=== PATIENT | female | born 1995 | race Hispanic/Latino ===

== ENCOUNTER 2017-04-06 00:37 | Day surgery (SDC) | payer OTHER ==
[2017-04-06 01:10] VITALS: BP 136/78; TEMP 98.5; BMI 22.6
--- NOTE | 2017-04-06 06:24 | PRG ---
OB ER ENCOUNTER DATE OF SERVICE: 04/06/2017 PRIMARY OB: Dr. Bibiana Tolliver. CHIEF COMPLAINT: Abdominal pains. HISTORY OF PRESENT ILLNESS: The patient is a 21-year-old G1, P0 female with an intrauterine pregnan cy at 39 weeks today who presents to Labor and Delivery with increasing abdominal pains. She report s that began about 11:00 in the morning prior to presentation. She says they have intensified and b ecome more regular as the day has progressed. She denies any leakage of fluid, any significant vagi nal bleeding, any fever, headache, fall, chest pain, shortness of breath. The patient reports nause a. Denies vomiting. Denies any constipation or diarrhea, any new skin rashes. She denies any vagi nal bleeding or leakage of fluid, any change in discharge. She denies urinary urgency. She denies any hip problems or knee problems. Pain is primarily in her lower abdomen and her back when the con tractions come on. PAST MEDICAL HISTORY: Negative. PAST SURGICAL HISTORY: Negative. ALLERGIES: No known drug allergies. MEDICATIONS: vitamins. OB LABS: RPR is nonreactive, GC chlamydia not detected. Hepatitis B surface antigen is nonreactive . HIV is nonreactive. She is rubella immune. Blood type is O positive. REVIEW OF SYSTEMS: Per HPI. PHYSICAL EXAMINATION: VITAL SIGNS: Blood pressure is 136/78, heart rate is 73, temperature 98.5, respiratory rate 18. GENERAL: She appears to be in no acute distress. She is alert and oriented, and cooperative and pl easant to interact with. HEENT: Head is normocephalic, atraumatic. LUNGS: Clear to auscultation bilaterally. HEART: Regular rate and rhythm. ABDOMEN: Gravid, soft, and nontender. EXTREMITIES: Nontender, nonedematous. CERVICAL EXAM: Per nursing staff, she is 0% effaced and -3 station. heart tracing performed for threatened labor at term. Baseline was noted to be at the 120s wi th moderate long-term variability, positive accelerations, no decelerations. The strip was about 1- 1/2 hours long, contractions are about every 5 to 6 minutes. ASSESSMENT AND PLAN: The patient is a 21-year-old G1, P0 female with an intrauterine at 3 9 weeks who is having term contractions and possible latent labor, but no evidence of active labor a t this time. The patient has requested pain medication prior to discharge home. We will be giving her 2 mg of Stadol IM with instructions to go home and rest and return with contractions have furthe r intensified become closer together or if she has leaking fluid or heavy vaginal bleeding. Fetus h as a category 1 tracing.
== END 2017-04-06 02:45 | disposition home or self-care (01) ==
LOC: L&D/OP 00:37
PROVIDERS: ATTEND Family Medicine
DX: O47.1 False labor at or after 37 completed weeks of gestation (principal); Z3A.39 39 weeks gestation of pregnancy; Z79.899 Other long term (current) drug therapy
CPT/HCPCS: 96372; J0595

== ENCOUNTER 2017-04-06 07:20 | Inpatient (IN) | payer MEDICAID, OTHER, SELFPAY ==
[2017-04-06] MEDS ORDERED: Promethazine HCl 25 MG/ML VIAL IM PRN ×2 (07:45→08:50)
[2017-04-06] MEDS ORDERED: HYDROcodone/Acetaminophen 5/325 mg Tablet PO PRN ×3 (07:45→16:11)
[2017-04-06] MEDS ORDERED: Ondansetron HCl/PF 4 MG/2 ML Vial IVP PRN ×2 (07:45→08:50)
[2017-04-06] MEDS ORDERED: Lidocaine 1% (PF) 30 ML VIAL SC PRN (07:45)
[2017-04-06] MEDS ORDERED: Ibuprofen 800 MG TAB PO PRN (07:45)
[2017-04-06] MEDS: Lactated Ringer's 1,000 ML IV SCH ×8 (07:47→19:05)
[2017-04-06 07:49] VITALS: BMI 22.6
[2017-04-06] MEDS ORDERED: Fentanyl 4 mcg/Marc 0.1% Cadd 100 ML ONE (08:00)
[2017-04-06 08:03] LABS: Hematocrit 37.8 % (36.0-47.0); Mean Platelet Volume 9.7 fL (7.4-10.4); Red Blood Cell (RBC) Count 5.03 mill/uL (4.00-5.20); White Blood Cell (WBC) Count 8.6 thou/uL (4.8-10.8)
[2017-04-06] MEDS ORDERED: Fentanyl 100 MCG/2 ML VIAL ONE (08:26)
[2017-04-06] MEDS ORDERED: Bupivacaine 0.75% W/DEXTROSE 8.25% 2 ML AMP ONE (08:26)
[2017-04-06] MEDS ORDERED: Acetaminophen 325 MG TAB PO PRN (08:50)
[2017-04-06] MEDS ORDERED: Naloxone HCl 0.4 mg/ml Vial IVP PRN ×2 (08:50)
[2017-04-06] MEDS ORDERED: diphenhydrAMINE HCl 50 MG/ML 1 ML VIAL IVP PRN (08:50)
[2017-04-06] MEDS ORDERED: Eucerin (Mineral Oil/Petrolatum,White) 30 gm Jar TOP PRN (08:50)
[2017-04-06] MEDS ORDERED: ePHEDrine/0.9% NaCl/PF SYRINGE 50 mg/10 ml SLOW IVP PRN (08:50)
[2017-04-06] MEDS ORDERED: Lactated Ringer's 500 ML IV PRN (08:50)
[2017-04-06] MEDS ORDERED: Bupivacaine 0.75% W/DEXTROSE 8.25% 2 ML AMP NERVE BLCK ONE (08:51)
[2017-04-06] MEDS ORDERED: Fentanyl 100 MCG/2 ML VIAL I-THECAL ONE (08:51)
[2017-04-06] MEDS ORDERED: Fentanyl 4mcg/Marcaine 0.1% Cassette 100 ML EPIDURAL SCH (09:00)
[2017-04-06] MEDS ORDERED: Communication Order-Pharmacy FS SCH (09:00)
[2017-04-06] MEDS: LR / Pitocin 40 units/1000 ml 1,000 ML IV PRN ×2 (13:25→14:46)
--- NOTE | 2017-04-06 14:06 | OP ---
PREOPERATIVE DIAGNOSIS: Term intrauterine in labor. POSTOPERATIVE DIAGNOSES: Term intrauterine in labor as well as second-degree perineal lac eration. PROCEDURES PERFORMED: Normal spontaneous vaginal delivery and laceration repair. SURGEON: Bibiana Tolliver M.D. ANESTHESIA: Epidural. ESTIMATED BLOOD LOSS: 400 mL. BRIEF DELIVERY SUMMARY: This is a 21-year-old G1, now P1 who presented in active labor. She progre ssed well to complete and pushing. She delivered a live female , head OA. Mouth and nares wa s bulb suctioned at the perineum. There was a loose nuchal cord which was unable to be reduced prio r to delivery of the shoulders. Shoulders and body quickly and easily followed. The baby was then disentangled from the cord. Apgars were 8 at 1 minute and 9 at 5 minutes. Placenta delivere d spontaneously and intact with a 3-vessel umbilical cord and cord blood was sent for analysis. The re was a second-degree vaginal laceration which was repaired in standard running fashion using 2-0 V icryl suture under epidural anesthesia with excellent hemostasis. There were some abrasions that ex tended out onto the right labia; however, these were not suturable. Uterine fundus was firm followi ng evacuation of the placenta. Mom and baby were left with the nurse in excellent condition attempt ing to breast feed.
[2017-04-06] MEDS ORDERED: Lanolin Ointment 7 GM TUBE TOP PRN (16:11)
[2017-04-06] MEDS ORDERED: LR / Pitocin 40 units/1000 ml 1,000 ML IV SCH (16:11)
[2017-04-06] MEDS ORDERED: Benzocaine/Menthol 20-0.5% 60 ML CAN TOP PRN (16:11)
[2017-04-06] MEDS ORDERED: Milk Of Magnesia 30 ML UDCUP PO PRN (16:11)
[2017-04-06] MEDS ORDERED: Bisacodyl 10 MG SUPP PR PRN (16:11)
[2017-04-06] MEDS ORDERED: Preparation H Ointment 28 GM TUBE PR PRN (16:11)
[2017-04-06] MEDS: Ferrous Sulfate 325 MG TAB PO SCH (18:05)
[2017-04-06] MEDS: Docusate (Surfak) 240 MG CAP PO SCH (21:33)
[2017-04-06] MEDS: Ibuprofen 800 MG TAB PO SCH (21:34)
[2017-04-07] MEDS: Ibuprofen 800 MG TAB PO SCH ×3 (06:24→22:03)
[2017-04-07] MEDS ORDERED: FLU VACC QS2017-18 36 mo. & older 0.5 ML SYRINGE IM ONE (09:00)
[2017-04-07] MEDS ORDERED: Adacel (T-DAP) 0.5 ML VIAL IM ONE (09:00)
[2017-04-07] MEDS: Docusate (Surfak) 240 MG CAP PO SCH ×2 (09:16→22:03)
[2017-04-07] MEDS: Ferrous Sulfate 325 MG TAB PO SCH ×2 (09:18→17:13)
[2017-04-08] MEDS: Ibuprofen 800 MG TAB PO SCH ×2 (06:22→13:40)
[2017-04-08] MEDS: Ferrous Sulfate 325 MG TAB PO SCH (09:28)
[2017-04-08] MEDS: Docusate (Surfak) 240 MG CAP PO SCH (09:29)
[2017-04-08 13:59] VITALS: BP 128/75; TEMP 98
[2017-04-08] MEDS ORDERED: FLU VACC QS2017-18 36 mo. & older 0.5 ML SYRINGE IM ONE (15:15)
== END 2017-04-08 16:10 | disposition home or self-care (01) | DRG 775 ==
LOC: L&D/OP 07:20 → L&D 09:08 → 3SW 16:17
PROVIDERS: ADMIT Family Medicine; ATTEND Family Medicine
PROC: 10E0XZZ Delivery of Products of Conception, External Approach (ICD-10-PCS; principal; 2017-04-06)
PROC: 0KQM0ZZ Repair Perineum Muscle, Open Approach (ICD-10-PCS; 2017-04-06)
DX: O70.1 Second degree perineal laceration during delivery (principal); Z37.0 Single live birth; O69.81X0 Labor and delivery complicated by cord around neck, without compression, not applicable or unspecified; Z3A.39 39 weeks gestation of pregnancy; Z23 Encounter for immunization
CPT/HCPCS: 85027; 86780; 87340; 90715; 96372; J0595; J2001; J3010; J3490

== ENCOUNTER 2017-04-11 10:16 | Emergency (ER) | payer OTHER ==
[2017-04-11 10:59] LABS: #Eosinphils 0.1 thou/uL (0.0-0.7); #Lymphocytes 1.3 thou/uL (1.20-3.40); #Monocytes 0.5 thou/uL (0.11-0.59); #Neutrophils 4.7 thou/uL (1.40-6.50); %Basophils 0.4 % (0.0-1.0); %Lymphocytes 19.9 % (28.0-48.0); %Monocytes 6.8 % (0.0-4.0); Hematocrit 33.8 % (36.0-47.0); Mean Platelet Volume 8.3 fL (7.4-10.4); Red Blood Cell (RBC) Count 4.42 mill/uL (4.00-5.20); White Blood Cell (WBC) Count 6.7 thou/uL (4.8-10.8)
[2017-04-11 11:20] LABS: ALT (SGPT) 9 U/L (8-55); AST (SGOT) 15 U/L (5-30); Alkaline Phosphatase 197 U/L (40-150); Anion Gap 12 mmol/L (10-20); BUN (Urea Nitrogen) 13 mg/dL (8.4-21.0); Bilirubin, Total 0.3 mg/dL (0.2-1.2); Calc. Creatinine Clearance 0 mL/min (70-130); Calcium 8.9 mg/dL (7.8-10.44); Carbon Dioxide 22 mmol/L (22-29); Chloride 111 mmol/L (98-107); Estimated GFR-MDRD Greater than 90; Globulin 3.3 g/dL (2.4-3.5); Lipase 7 U/L (8-78); Protein, Total 6.8 g/dL (6.0-8.3)
[2017-04-11] MEDS ORDERED: Caffeine/Sodium Benzoate 0.5 GM in Sodium Chloride 0.9% 1,000 ML IVPB SCH (12:00)
== END 2017-04-11 14:10 | disposition home or self-care (01) ==
LOC: ERS 10:16
DX: O89.4 Spinal and epidural anesthesia-induced headache during the puerperium (principal)
CPT/HCPCS: 36415; 80053; 83690; 85025; 94760; 96360; J0706; J7050

== ENCOUNTER 2019-12-21 08:34 | Outpatient (CLI) | payer OTHER ==
--- NOTE | 2019-12-21 11:24 | ULT ---
OB ULTRASOUND: Date: 12/21/2019 HISTORY: anatomy. FINDINGS/IMPRESSION: A single, live intrauterine gestation is seen with measurements corresponding to an estimated gestati onal age of 19 weeks and 3 days, and [place]TON at 04/12/2020. The estimated weight measures 303 gm or 11 oz (6% by Hadlock criteria). Biometry: BPD: 4.12 cm, 18 weeks/4 days HC: 16.32 cm, 19 weeks/1 day AC: 14.34 cm, 19 weeks/5 days FL: 3.14 cm, 19 weeks/6 days heart rate measures 152 beats/minute. Placenta is posteriorly located without evidence of placenta previa. JORDIN measures 9.8 cm. Cervical length measures 4.0 cm in length. A 3 vessel cord, cord insertion, kidneys, bladder, stomach, 4 chamber heart, lateral ventricles , cerebellum, spine, lips/nose, and upper/lower extremities are visualized. No definite anomali es are seen. IMPRESSION: Single, live intrauterine gestation is seen with measurements corresponding to an estimated gestation al age of 19 weeks and 3 days, and [place]TON at 04/12/2020. POS: [facility]
== END 2019-12-21 08:35 | disposition home or self-care (01) ==
LOC: BICULT 08:34
PROVIDERS: ATTEND Family Medicine
DX: Z34.82 Encounter for supervision of other normal pregnancy, second trimester (principal); Z3A.19 19 weeks gestation of pregnancy
CPT/HCPCS: 76805

== ENCOUNTER 2020-04-26 02:33 | Inpatient (IN) | payer MEDICAID, OTHER ==
[2020-04-26 03:05] VITALS: BMI 23.8
[2020-04-26] MEDS ORDERED: hydrALAZINE 20 MG/ML VIAL SLOW IVP PRN ×3 (03:24→13:42)
[2020-04-26] MEDS ORDERED: Butorphanol Tartrate 1 MG/ML VIAL SLOW IVP PRN (03:34)
[2020-04-26] MEDS ORDERED: Lidocaine 1% (PF) 30 ML VIAL SC PRN (03:34)
[2020-04-26] MEDS ORDERED: Ondansetron PF 4 MG/2 ML Vial IVP PRN ×3 (03:34→13:42)
[2020-04-26] MEDS ORDERED: Promethazine HCl 25 MG/ML VIAL IM PRN ×3 (03:34→13:42)
[2020-04-26] MEDS ORDERED: Acetaminophen 500 MG TAB PO PRN (03:34)
[2020-04-26] MEDS ORDERED: Ibuprofen 800 MG TAB PO PRN (03:34)
[2020-04-26] MEDS ORDERED: HYDROcodone/Acetaminophen 5/325 mg Tablet PO PRN ×4 (03:34→13:42)
--- NOTE | 2020-04-26 03:39 | PDOC.LDHP ---
Labor and Delivery H&P Chief complaint: contractions HPI: 24 yo LAF c/o UCs q 5 mins. Denies SROM or bleeding. Current gestational age (weeks): 37 Due date: 05/13/20 Dating criteria: last menstrual period Grav: 2 Para: 1 OB History Details: h/o x1 at term Current complications: none Abnormal US findings: No Past Medical History: none Current medications: pre- vitamins Previous surgical history: none Allergies/Adverse Reactions: Allergies Allergy/AdvReac Type Severity Reaction Status Date / Time No Known Allergies Allergy Verified 04/26/20 02:59 Social history: none - Physical Exam Vital signs reviewed and normal: yes General: breathing through contractions Heart: RRR Lungs: CTAB Abdomen: gravid Extremeties: trace edema FHT: category 1 [place] contractions every: q 5 mins - Vaginal Exam cm dilated: 4 Effacement: 90% Station: -1 - OB Labs GBS: negative - Assessment L&D Assessment: term patient in labor - Plan Plan: admit to L&D, informed consent obtained (Dr. Howell notified of admit)
[2020-04-26] MEDS ORDERED: Lactated Ringer's 1,000 ML IV SCH (03:45)
[2020-04-26] MEDS ORDERED: Fentanyl 4 mcg/Bup 0.1% Cadd 100 ML ONE (04:19)
[2020-04-26 04:27] LABS: Hemoglobin 9.8 g/dL (12.0-16.0); Mean Corpuscular Hemoglobin 21.6 pg (27.0-31.0); Mean Corpuscular Volume 69.8 fL (78.0-98.0); Mean Platelet Volume 11.8 fL (7.4-10.4); Platelet Count 210 thou/uL (130-400); RBC Distribution Width 17.5 % (11.5-14.5); Red Blood Cell (RBC) Count 4.51 mill/uL (4.20-5.40); White Blood Cell (WBC) Count 7.2 thou/uL (4.8-10.8)
[2020-04-26 05:01] LABS: HBSAg Index 0.13 S/CO (0-0.99); Hep B Surf Ag Non-Reactive S/CO (NonReactive)
[2020-04-26 05:11] LABS: Syphilis Antibody Nonreactive (Nonreactive); Syphilis Antibody Index 0.03 S/CO (<1.00 Non-Reactive)
[2020-04-26] MEDS: Lactated Ringer's 1,000 ML IV SCH ×3 (05:14→11:18)
[2020-04-26] MEDS ORDERED: diphenhydrAMINE 50 MG/ML VIAL IVP PRN (05:16)
[2020-04-26] MEDS ORDERED: Naloxone HCl 0.4 mg/ml Vial IVP PRN ×2 (05:16)
[2020-04-26] MEDS ORDERED: Acetaminophen 325 MG TAB PO PRN (05:16)
[2020-04-26] MEDS ORDERED: EPHEDRINE 25 MG/5 ML SYRINGE SLOW IVP PRN (05:16)
[2020-04-26] MEDS ORDERED: Lactated Ringer's 500 ML IV PRN (05:16)
[2020-04-26] MEDS ORDERED: Fentanyl 4 mcg/Bupivacaine 0.1% Cassette 100 ML EPIDURAL SCH (05:30)
[2020-04-26] MEDS ORDERED: Communication Order-Pharmacy FS SCH (05:30)
[2020-04-26] MEDS ORDERED: Misoprostol 200 MCG TAB ONE (08:18)
[2020-04-26] MEDS ORDERED: Bupivacaine/Epinephrine 0.25% 30 ML VIAL ONE (08:41)
[2020-04-26] MEDS: NS / Oxytocin 40 units/1000ml 1,000 ML IV PRN ×2 (11:18→13:41)
[2020-04-26 11:19] LABS: SARS-CoV-2 MS2 Positive; SARS-CoV-2 N Gene Negative; SARS-CoV-2 S Gene Negative; SARS-CoV-2 by NAA Not Detected (NotDetected); SARS-CoV-2 orf1ab Negative
[2020-04-26] MEDS ORDERED: Lanolin Ointment 7 GM TUBE TOP PRN (13:42)
[2020-04-26] MEDS ORDERED: Bisacodyl 10 MG SUPP PR PRN (13:42)
[2020-04-26] MEDS ORDERED: Adacel (T-DAP) 0.5 ML SYRINGE IM ONE (13:42)
[2020-04-26] MEDS ORDERED: Preparation H Ointment 28 GM TUBE PR PRN (13:42)
[2020-04-26] MEDS ORDERED: Milk Of Magnesia 30 ML UDCUP PO PRN (13:42)
[2020-04-26] MEDS ORDERED: NS / Oxytocin 40 units/1000ml 1,000 ML IV SCH (13:42)
[2020-04-26] MEDS ORDERED: diphenhydrAMINE 25 MG CAP PO PRN (13:42)
[2020-04-26] MEDS: Ibuprofen 800 MG TAB PO SCH ×2 (14:17→21:36)
[2020-04-26] MEDS: Ferrous Sulfate 325 MG TAB PO SCH (18:41)
[2020-04-26] MEDS ORDERED: Sodium Chloride 0.9% 10 ML ONE (21:34)
[2020-04-26] MEDS: Docusate Calcium (SURFAK) 240 MG CAP PO SCH (21:36)
[2020-04-27] MEDS: Ibuprofen 800 MG TAB PO SCH ×2 (06:31→14:51)
[2020-04-27 07:38] VITALS: BP 114/73; TEMP 98.5
[2020-04-27] MEDS ORDERED: Prenatal Vitamin 1 TAB PO SCH (09:00)
[2020-04-27] MEDS: Ferrous Sulfate 325 MG TAB PO SCH (09:16)
[2020-04-27] MEDS: Docusate Calcium (SURFAK) 240 MG CAP PO SCH (09:16)
== END 2020-04-27 19:46 | disposition home or self-care (01) | DRG 807 ==
LOC: L&D/OP 02:33 → L&D 03:34 → 3SE 14:08
PROVIDERS: ADMIT Obstetrics & Gynecology; ATTEND Obstetrics & Gynecology
PROC: 10E0XZZ Delivery of Products of Conception, External Approach (ICD-10-PCS; principal; 2020-04-26)
PROC: 10907ZC Drainage of Amniotic Fluid, Therapeutic from Products of Conception, Via Natural or Artificial Opening (ICD-10-PCS; 2020-04-26)
DX: O69.1XX0 Labor and delivery complicated by cord around neck, with compression, not applicable or unspecified (principal); Z37.0 Single live birth; Z3A.38 38 weeks gestation of pregnancy; Z20.828 Contact with and (suspected) exposure to other viral communicable diseases
CPT/HCPCS: 36415; 85027; 86780; 86850; 86900; 86901; 87340; 87635; J1200; J2405; U0003